=== PATIENT | male | born 1955 | race Caucasian/White ===

== ENCOUNTER 2020-12-21 13:37 | Emergency (ER) | payer MEDICAID, SELFPAY ==
[2020-12-21 13:37] VITALS: BP 127/74; PULSE 70; RESP 16; TEMP 36.4; O2SAT 97; BMI 40.2
--- NOTE | 2020-12-21 14:18 | EX.ED.DYSGE1 ---
HPI History of Present Illness Chief Complaint: Rash Narrative Narrative: 65-year-old male presenting with rash on the bilateral forearms. He states that earlier in the week he had been pulling weeds and he is unsure if he came to contact with poison danni or poison oak. Patient states he was wearing gloves and using tools. He noticed a rash on the bilateral forearms on Sunday. It has been more pruritic since that time. He does state that he has small vesicles on the arm and these are slightly weeping. He has been doing calamine lotion wraps on his arms but states that this is not making her rash improved. PFSH PFSH Home Medications oxycodone-acetaminophen 1 - 2 tab PO Q4H PRN PRN #20 tab 11/25/15 [Rx Last Taken Unknown] prednisone 10 mg PO DAILY #33 tab 12/21/20 [Rx Last Taken Unknown] Allergy/AdvReac Type Severity Reaction Status Date / Time No Known Allergies Allergy Verified 11/25/15 21:09 Social History Smoking Status: Never smoker ROS ROS ED Constitutional Constitutional ED: Denies chills, fever(s) or sweats Eyes Eyes: Denies blurry vision or change in vision ENT ENT ED: Denies ear pain, rhinorrhea or sore throat Cardiovascular Cardiovascular: Denies chest pain, palpitations or racing heartbeat Respiratory/Chest Respiratory/Chest: Denies cough, dyspnea or sputum Gastrointestinal Gastrointestinal: Denies abdominal pain, constipation, diarrhea or vomiting Genitourinary Genitourinary ED: Denies dysuria, hematuria or urinary frequency Musculoskeletal Musculoskeletal: Denies arthralgias, myalgias or neck pain Integumentary Reports rash; Denies abscess or Abrasions Neurologic Neurologic: Denies headache(s), paresthesias or weakness Psychiatric Psychiatric: Denies anxiety, depression, suicidal ideation or suicidal thoughts Endocrine Endocrinology: Denies polydipsia or polyuria EXAM Physical Exam Const Vital Signs: 12/21/20 13:37 Temperature 97.5 F L Temperature Source Temporal Pulse Rate 70 Respiratory Rate 16 Blood Pressure 127/74 H Blood Pressure Mean 91 Pulse Ox 97 Oxygen Delivery Method Room Air Positive well nourished General Appearance ED: NAD; Negative for pallor HEENT Reports moist mucous membranes Negative for trauma Eyes PERRL and EOMs intact bilaterally Extremity Extremity Narrative: Erythematous rash on the bilateral forearms with vesicles and weeping. No cellulitic changes. No crepitance palpated. Neuro oriented x3 and CN's II-XII intact bilaterally Sensorium / Orientation: alert Skin Skin Narrative: Rash as noted above. General Skin Exam: Negative for jaundice or pallor MDM MDM MDM Narrative Medical decision making narrative: Patient presenting with rash consistent with poison danni dermatitis or possibly poison oak. Patient unsure what he came in contact with but states he has had both before and it feels similar. Patient denies any systemic signs or symptoms. He states calamine lotion is not helping. Patient will be started on extended prednisone taper and counseled he can still use calamine lotion and Benadryl as needed. Patient counseled that he should use clean gloves and clean the tools and gloves that he previously used while he came in contact with the poison danni/poison oak. Patient acknowledged understanding. Impression: #1 Poison danni dermatitis Discharge Plan Triage Chief Complaint: Rash ED Provider: Mina Burrows Dx/Rx/DC Orders Instructions: ED Poison Danni Rash Prescriptions: New prednisone 10 mg tablet 10 mg PO DAILY Qty: 33 RF: 0 No Action oxycodone-acetaminophen 1 TABLET tablet 1 - 2 tab PO Q4H PRN PRN (Reason: Pain) Qty: 20 RF: 0 Primary Care Provider: Shane Multani Referrals: Shane Multani MD [Primary Care Provider] - Ricci Rodgers MD [STAFF PHYSICIAN] - As Needed Disposition Disposition: Home, Self Care
[2020-12-21] MEDS: predniSONE 20 MG Tablet 60 MG PO (14:41)
== END 2020-12-21 15:08 | disposition home or self-care (01) ==
LOC: ED 14:22
PROVIDERS: Emergency Provider Student in an Organized Health Care Education/Training Program; PCP Family Medicine
DX: L25.5 Unspecified contact dermatitis due to plants, except food (principal)
CPT/HCPCS: 99283